=== PATIENT | female | born 1950 | race Caucasian/White ===

== ENCOUNTER 2018-03-27 01:12 | Outpatient (CLI) | payer MEDICARE, OTHER, SELFPAY ==
--- NOTE | 2018-03-27 11:02 | DI.MAMMO_ITS ---
SYMPTOMS/DIAGNOSIS: SCREENING, Z12.31 MAMMOGRAM: Mammograms were interpreted according to the usual protocol including computer analysis with CAD system, tomosynthesis and C view imaging. The breasts are heterogeneously dense. No dominant mass or clumped microcalcification identified in either breast. Current examination is compared with the previous examinations including February 2017 and there has been no gross interval change in appearance in comparison with the previous studies. CONCLUSION: No specific evidence of malignancy at this time. Routine screening examinations are suggested at yearly intervals due to the family history of breast carcinoma. Category 1, breast density category C. MQSA ASSESSMENT OF FINDINGS: Negative. Category 1. Patient will receive a letter notifying them of these results. Bi-RADS category C. The breasts are heterogeneously dense, which may obscure small masses.
== END 2018-03-27 01:32 ==
PROVIDERS: PCP Family Medicine; Visit Provider Nurse Practitioner Family
DX: Z12.31 Encounter for screening mammogram for malignant neoplasm of breast (principal); Z80.3 Family history of malignant neoplasm of breast
CPT/HCPCS: 77063; 77067

== ENCOUNTER 2019-04-17 01:22 | Outpatient (CLI) | payer OTHER, SELFPAY ==
--- NOTE | 2019-04-17 11:50 | DI.MAMMO_ITS ---
EXAM: MG MAMMO SCREENING CLINICAL HISTORY: screening TECHNIQUE: Mammograms were interpreted according to the usual protocol including computer analysis w [employer] CAD system, tomosynthesis and C-view imaging. COMPARISON: [id number] FINDINGS: The breasts are composed of scattered areas of fibroglandular density, breast density category B. Th ere are no significant masses or signficant microcalcifications. There has been no significant interv al change when compared with prior images. IMPRESSION: Category 1, negative mammogram. Yearly screening mammography is recommended. BI-RADS Cat 1 - Negative Breast Density - Category B - Scattered areas of fibroglandular density
== END 2019-04-17 01:42 ==
PROVIDERS: PCP Nurse Practitioner Family; Visit Provider Nurse Practitioner Family
DX: Z12.31 Encounter for screening mammogram for malignant neoplasm of breast (principal)
CPT/HCPCS: 77063; 77067

== ENCOUNTER 2020-07-04 03:36 | Outpatient (CLI) | payer MEDICARE, OTHER, SELFPAY ==
--- NOTE | 2020-07-04 | DI.MAMMO_ITS ---
EXAM: MG MAMMO SCREENING CLINICAL HISTORY: SCREENING, Z12.31 TECHNIQUE: Bilateral full field digital CC and MLO mammographic images were obtained with 3D tomosyn thesis and utilizing computer aided detection (CAD). COMPARISON: Available for comparison. FINDINGS: Masses/Architectural Distortion: None seen. Microcalcifications: No suspicious pleomorphic-type are seen. Skin Thickening/Nipple Retraction: None. IMPRESSION: 1. No significant interval change with no specific features of malignancy noted. 2. Unless there is more urgent need, screening mammography is recommended, as per [employer] guidelines. BI-RADS Category 1 - Negative Breast Density - Category B - Scattered areas of fibroglandular density Breast density category C or D implies that the patient has dense breast tissue. Dense breast tissue is very common and is not abnormal but dense breast tissue can make it harder to find cancer on a ma mmogram. Also, dense breast tissue may increase their breast cancer risk. This information about the result of the mammogram report was provided to the patient to raise their awareness. Use this report when you speak with the patient about their risks for breast cancer, which includes their family hist ory. At that time, you may recommend for more screening tests (Ultrasound or MRI) as they might be us eful based on their risk. A negative radiographic report should not delay biopsy if a dominant or clinically suspicious mass is present. Up to ten percent of cancers are not identified on mammography. A negative report may reinforce clinical impression. Adenosis and dense breasts may obscure an underlying neoplasm. False positive reports average 6 to 10%. Patient will receive a letter notifying them of these results.
== END 2020-07-04 03:56 ==
PROVIDERS: PCP Internal Medicine; Visit Provider Internal Medicine
DX: Z12.31 Encounter for screening mammogram for malignant neoplasm of breast (principal)
CPT/HCPCS: 77063; 77067

== ENCOUNTER 2021-10-21 00:38 | Outpatient (CLI) | payer MEDICARE, SELFPAY ==
--- NOTE | 2021-10-21 | DI.MAMMO_ITS ---
Exam(s) MAMMO SCREENING EXAM: MAMMO SCREENING CLINICAL HISTORY: SCREENING, Z12.31 TECHNIQUE: Mammograms were interpreted according to the usual protocol including computer analysis w [employer] CAD system, tomosynthesis and C-view imaging. COMPARISON: 2011 through 2020 FINDINGS: The breasts are composed of scattered fibroglandular densities, Breast Density category B. No suspicious masses or suspicious microcalcifications are seen. No skin thickening or abnormal axillary lymph nodes are seen. There has been no significant change from prior exams. IMPRESSION: BI-RADS Category 1, Negative mammogram Yearly screening mammography is recommended. Breast Density - Category B, scattered fibroglandular densities. A negative radiographic report should not delay biopsy if a dominant or clinically suspicious mass is present. Up to ten percent of cancers are not identified on mammography. A negative report may reinforce clinical impression. Adenosis and dense breasts may obscure an underlying neoplasm. False positive reports average 6 to 10%. Patient will receive a letter notifying them of these results.
--- OUTSIDE RECORDS SUMMARY | 2021-10-21 00:39 | XMS_ITS ---
:1950 Author Care Team Providers Name Role Phone DOMINGEUZ VALLES Primary Care Provider [phone] ANNETTE MOLINA MD General Surgeon [phone] JENNIFER ORTIZ MD General Surgeon [phone] Allergies Code Code System Name Reaction Severity Status Onset Cephalosporins Rash Mild Active ? Penicillins Rash Moderate to Active ? Severe 9773 RxNorm Silver Nitrate ? ? Active ? Medications Name Status Start Date Stop Date ? ? Adacel (Tdap Adolesn/Adult)(PF)2 Completed ? 06/25/2021 Lf-(2.5-5-3-5)-5 Lf/0.5 mL IM syringe albuterol sulfate HFA 90 Completed ? 020 mcg/actuation aerosol inhaler amlodipine 10 mg tablet Active ? Not avai lable Take 1 tablet every day by oral route. amlodipine 5 mg tablet Completed ? 8 azithromycin 250 mg tablet Completed ? 05/28 Calcium 600 + D(3) 600 mg-10 mcg (400 unit) tablet Active ? Not available Take 1 tablet every day by oral route. cyclobenzaprine 5 mg tablet Active ? Not available Take 1 tablet 3 times a day by oral route for 7 days. dexamethasone 1 mg tablet Completed ? 2017 doxycycline hyclate 100 mg tablet Completed ? 04/13/2018 Estrace 0.01% (0.1 mg/gram) Active ? Not available vaginal cream Euthyrox 112 mcg tablet Active ? Not avai lable TAKE 1 TABLET BY MOUTH ONCE DAILY Euthyrox 125 mcg tablet Completed ? 02/10/20 21 Take 1 tablet by mouth once daily famciclovir 500 mg tablet Active ? Not av ailable TAKE 1 TABLET BY MOUTH TWICE DAILY FOR 1 DAY Fluzone High-Dose (PF) 180 Completed ? 05/09/2019 mcg/0.5 mL intramuscular syringe hydroxychloroquine 200 mg tablet Completed ? 02/04/2021 levofloxacin 500 mg tablet Completed ? 03/02 levothyroxine 100 mcg tablet Completed ? Take one tablet every other day alternating with 112 mcg dose Lunesta 2 mg tablet Completed 06/30/2010 07/01/2010 1 (one) Tablet: at bedtime lutein 20 mg capsule Active ? Not availab le Take 1 capsule every day by oral route. meloxicam 15 mg tablet Completed 02/22/2012 3 1 Tablet: DAILY metronidazole 0.75 % lotion Active ? Not available nitrofurantoin macrocrystal 100 mg capsule Completed 09/1409/15/2011 one Capsule: As directed omeprazole 20 mg capsule,delayed release Active ? Not available Take 1 capsule every day by oral route for 30 days. Premarin 0.3 mg tablet Completed 12/09/2016 7 1 (one) Tablet: once a day ranitidine 150 mg capsule Completed 09/21/20102011 1 Capsule: bid - twice daily Shingrix (PF) 50 mcg/0.5 mL Completed ? 06/13 intramuscular suspension, kit simvastatin 20 mg tablet Active ? Not blaine ilable TAKE 1 TABLET BY MOUTH DAILY sulfacetamide sodium 10 % eye drops Completed 08/07/2010 08/14/2010 2 (two) Drop(s): four times daily sulfamethoxazole 800 Completed ? 03/26/2019 mg-trimethoprim 160 mg tablet Symbicort 160 mcg-4.5 mcg/actuation HFA aerosol inhaler Complete d ? 06/21/2019 Inhale 2 puffs twice a day by inhalation route for 30 days. Tessalon Perles 100 mg capsule Completed ? 0 06/21/2019 Take 1-2 capsules three times a day as needed trazodone 50 mg tablet Completed 07/27/2016 7 1 (one) Tablet: one to two at bedtime as needed TussiCaps 5 mg-4 mg capsule,extended release Completed 11/28/2009 1 (one) Capsule ER 12HR: at bedtime, as needed for cough valacyclovir 500 mg tablet Completed 03/30/201607/27 1 (one) Tablet: every 12 hours for up to 2 doses Vitamin B-12 1,000 mcg tablet Completed 10/24/2016 0 10/24/2016 1 (one) Tablet Tablet: daily Yuvafem 10 mcg vaginal tablet Active ? No t available 1 (one) Tablet: 2X/week Zovirax 5 % topical cream Completed 03/19/20132013 1 Cream: apply 5 times a day for 4 days prn Notes: 06/25/21 verbal review Problems Name Status Onset Date Source ? Sj?Gren's Syndrome Active 04/13/2018 ? Compression Fracture Active 03/06/2021 ? Melanocytic Nevus Active ? History Hypothyroidism Active ? History Biotin Deficiency Disease Active ? Histor y Hyperlipidemia Active ? History Insomnia Active ? History Migraine Active ? History Disorder of Conjunctiva Unknown ? History Hypertensive Disorder Active ? History Phlebitis and Thrombophlebitis Active ? H istory Pharyngitis Unknown ? History Sinusitis Unknown ? History Disorder of Upper Respiratory System Unknown ? History Xerostomia Unknown ? History Gastroesophageal Reflux Disease Active ? History Incisional Hernia Active ? History Constipation Active ? History Urinary Tract Infectious Disease Unknown ? History Blood in Urine Active ? History Atrophic Vaginitis Active ? History Rosacea Active ? History Senile Hyperkeratosis Active ? History Backache Unknown ? History Lack of Energy Unknown ? History Tingling of Skin Unknown ? History Heart Murmur Active ? History Dyspnea Unknown ? History Hyperglycemia Active ? History Immunoglobulin Level - Finding Active ? H istory C-reactive Protein Abnormal Active ? Hist ory Toxic Effect of Venom Active ? History Accidental Poisoning Unknown ? History Adult Health Examination Active ? History Procedure by Method Unknown ? History Perimenopausal Disorder Active ? History Disorder of Skin Unknown ? History Multiple System Malformation Syndrome Unknown ? History Procedures Date Name Performed by ? 05/18/2017 Colonoscopy Information not avai lable ? Hysterectomy Information not avai lable Notes: per patient ? Tubal Ligation Information not avai lable Notes: per patient ? Appendectomy Information not avai lable Notes: per patient ? Section Information not avai lable Notes: per patient 05/28/2019 XR, Foot, 3 or More [facility] [address], [place] [address] (Work Place) 06/21/2019 DEXA, Axial Skeleton [facility] (Internal) [address] [address] (Work Place) 06/23/2020 MAMMO, Screening, Tomosynthesis, [facility] (Radiology) Bilateral [address] [place], [place] [id number] (Work Place) 02/04/2021 XR, Lumbosacral Spine, 2 or 3 View [facility] (Internal) [address], [place] [id number] (Work Place) 02/09/2021 MRI, Thoracic Spine, W/o Contrast [facility] (Internal) [address] [place] [address] (Work Place) 06/25/2021 MAMMO, Screening, Tomosynthesis, Xray Nv rh Bilateral Pob [address] [facility], [place] [address] (Work Place) Results Lab Results Date Name Specimen Result Interpretation Description Value Range Status Address ? 06/26/2021 Hepatitis S ? Hbc negative negative Final [facility] (A+B+C) Panel, Total Ab, [facility] L ab (Internal) : [address] ? ? S ? Hbs positive ? Final [facility] Antibody, [facility] L ab (Internal) : [address] ? ? S ? Hbs 38.1 mIU/mL ? Final [facility] Antibody, [facility] michael, S (Internal) : [address] ? ? S ? Hbs negative negative Final [facility] Antigen, [facility] L ab (Internal) : [address] ? ? S ? HCV Ab, negative negative Final Nort h S [facility] L ab (Internal) : [address] 06/26/2021 Aldosterone, S ? Aldoster 18 NG/dL <=21 Fi nal [facility] Blood one, S NG/dL [facility] L ab (Internal) : [address] 06/26/2021 Renin ? Renin 1.0 NG/mL/h ? Final N orth Activity, Activity, Coun try Plasma (Pra) P Hosp ital Lab (Internal) : [address] 06/24/2021 CBC W/ Auto BLD ? Wbc 5.7 10*3/uL 5.0-10.0 F inal North Diff 10*3/uL [facility] L ab (Internal) : [address] ? ? BLD ? Rbc 4.38 10*6/uL 4.10-5.30 Final N orth 10*6/uL [facility] L ab (Internal) : [address] ? ? BLD ? Hgb 14.3 g/dL 12.0-16.0 Final Nort h g/dL [facility] L ab (Internal) : [address] ? ? BLD ? Hct 42.3 % 37.0-47.0 Final [facility] L ab (Internal) : [address] ? ? BLD High Mcv 96.6 fL 80.0-96.0 Final [facility] L ab (Internal) : [address] ? ? BLD High Mch 32.6 pg 26.0-32.0 Final [facility] L ab (Internal) : [address] ? ? BLD ? Mchc 33.8 g/dL 31.0-35.0 Final Nort h g/dL [facility] L ab (Internal) : [address] ? ? BLD ? Rdw 12.6 % 11.5-14.5 Final [facility] L ab (Internal) : [address] ? ? BLD ? Plt 346 10*3/uL 130-450 Final Nort h 10*3/uL [facility] L ab (Internal) : [address] ? ? BLD ? Anc 3.40 10*3/uL ? Final Nort h [facility] L ab (Internal) : [address] ? ? BLD ? Nlr 1.94 0.00-3.20 Final [facility] L ab (Internal) : [address] ? ? BLD ? Neutro 59.8 % 40.0-75.0 Final [facility] L ab (Internal) : [address] ? ? BLD ? Lymph 30.8 % 20.0-50.0 Final [facility] L ab (Internal) : [address] ? ? BLD ? [place] 6.9 % 2.0-10.0 [facility] [address] ? ? BLD ? Eos 1.4 % 1.0-6.0 % Final [facility] L ab (Internal) : [address] ? ? BLD ? Baso 0.7 % 0.0-1.0 % Final [facility] L ab (Internal) : [address] ? ? BLD ? Ig 0.4 % 0.0-0.9 % Final [facility] L ab (Internal) : [address] 06/24/2021 TSH, Serum or S ? Tsh 1.43 uIU/mL 0.36-3.7 4 Final North Plasma uIU/mL [facility] [address] 06/24/2021 CMP, Serum or S ? g/r 88 mg/dL 74-106 Yadira l [facility] Plasma mg/dL [facility] (Internal) : [address] ? ? S ? Bun 12 mg/dL 7-18 Final North mg/dL [facility] (Internal) : [address] ? ? S ? Crea 0.7 mg/dL 0.6-1.0 Final North mg/dL [facility] L ab (Internal) : [address] ? ? S ? Ca 9.2 mg/dL 8.5-10.1 Final North mg/dL [facility] L ab (Internal) : [address] ? ? S ? Na 141 mmol/L 136-145 Final North mmol/L [facility] L ab (Internal) : [address] ? ? S ? K 3.9 mmol/L 3.5-5.1 Final [facility] mmol/L [facility] (Internal) : [address] ? ? S ? Cl 103 mmol/l 98-107 Final North mmol/l [facility] L ab (Internal) : [address] ? ? S ? Tco2 29.7 mmol/L 21.0-32.0 Final No rth mmol/L [facility] L ab (Internal) : [address] ? ? S ? Tp 7.3 g/dL 6.4-8.2 Final North g/dL [facility] (Internal[facility] : [address] ? ? S ? Alb 4.0 g/dL 3.4-5.0 Final North g/dL [facility] L ab (Internal) : [address] ? ? S ? Tbil 0.60 mg/dL 0.20-1.00 Final Nor th mg/dL [facility] L ab (Internal) : [address] ? ? S ? Alp 82 U/L 46-116 Final North U/L [facility] L ab (Internal) : [address] ? ? S High Alt 78 U/L 14-59 U/L Final [facility] (Sgpt) [facility] L ab (Internal) : [address] ? ? S ? Ast 34 U/L 15-37 U/L Final [facility] (Sgot) [facility] L ab (Internal) : [address] 06/24/2021 Lipid Panel, S High Chol 225 mg/dL 0-200 Yadira l North Serum mg/dL [facility] L ab (Internal) : [address] ? ? S ? Trig 115 mg/dL 0-150 Final North mg/dL [facility] L ab (Internal) : [address] ? ? S High Hdl 63 mg/dL 40-60 Final North mg/dL [facility] L ab (Internal) : [address] ? ? S High Ldl 139 mg/dL 0-130 Final North mg/dL [facility] L ab (Internal) : [address] 06/24/2021 Bilirubin, S ? Dbil 0.14 mg/dL 0.00-0.20 Fi nal North Direct, Serum mg/dL Cou ntry or Plasma Hospita l Lab (Internal) : [address] [facility] 06/24[facility]2021 Gamma-glutamyl S High Ggt 80 U/L 5-55 U/L Fin al North Transferase Count ry (Ggt), Serum Hosp ital Lab (Internal) : [address] 02/03/2021 TSH, Serum or S ? Tsh 1.30 0.47-4.68 Fin al North Plasma u[IU]/mL u[IU]/mL [facility] L ab (Internal) : [address] 12/10/2020 TSH, Serum or S Low Tsh <0.05 0.47-4.68 Fin al North Plasma u[IU]/mL u[IU]/mL [facility] L ab (Internal) : [address] 06/20/2020 Lipid Panel, S High Chol 246 mg/dL 50-200 Yadira [facility] Serum mg/dL [facility] L ab (Internal) : [address] ? ? S ? Trig 98 mg/dL 10-150 Final North mg/dL [facility] L ab (Internal) : [address] ? ? S High Hdl 90 mg/dL 40-60 Final North mg/dL [facility] L ab (Internal) : [address] ? ? S High Ldl 136 mg/dL 0-130 Final North mg/dL [facility] L ab (Internal) : [address] 06/20/2020 TSH, Serum or S High Tsh 6.62 0.47-4.68 Fin mo North Plasma u[IU]/mL u[IU]/mL [facility] L ab (Internal) : [address] 04/04/2020 Pathology TISS ? Report (see below) ? [facility] [address] 05/21/2019 Lipid Panel, S High Chol 235 mg/dL 50-200 Yadira [facility] Serum mg/dL [facility] L ab (Internal) : [address] ? ? S High Trig 207 mg/dL 10-150 Final North mg/dL [facility] ab (Internal) : [address] ? ? S High Hdl 83 mg/dL 40-60 Final North mg/dL [facility] L ab (Internal) : [address] ? ? S - Ldl 111 mg/dL 0-130 Final North mg/dL [facility] L ab (Internal) : [address] 05/21/2019 TSH, Serum or S - Tsh 4.60 0.47-4.68 Fin [facility] Plasma u[IU]/mL u[IU]/mL [facility] L ab (Internal) : [address] 02/23/2019 Culture, MISC - Final microbiology ? Final North Superficial results Coun try [facility] (Internal) : [address] 01/06/2019 Lipid Panel, S - Chol 187 mg/dL 50-200 Yadira l [facility] Serum mg/dL [facility] L ab (Internal) : [address] ? ? S - Trig 104 mg/dL 10-150 Final [facility] mg/dL [facility] L ab (Internal) : [address] ? ? S High Hdl 97 mg/dL 40-60 Final North mg/dL [facility] ab (Internal) : [address] ? ? S - Ldl 69 mg/dL 0-130 Final [facility] mg/dL [facility] L ab (Internal) : [address] 01/06/2019 TSH, Serum or S High Tsh 7.63 0.47-4.68 Fin [facility] Plasma u[IU]/mL u[IU]/mL [facility] L ab (Internal) : [address] 02/17/2018 Metanephrines, - Normetan 0.47 nmol/L <0.9 0 Final [facility] Fractionated, ephrine, nmol/L C ountry Free, Plasma Free Hosp ital Lab (Internal) : [address] ? ? - Metaneph <0.20 nmol/L <0.50 Final N orth rine, nmol/L [facility] L ab (Internal) : [address] 11/10/2017 BMP, Serum or S High g/r 127 mg/dL 74-106 Fin [facility] Plasma mg/dL [facility] L ab (Internal) : [address] ? ? S High Bun 18 mg/dL 7-17 Final North mg/dL [facility] L ab (Internal) : [address] ? ? S - Crea 0.70 mg/dL 0.52-1.04 Final Nor th mg/dL [facility] L ab (Internal) : [address] ? ? S - Ca 9.7 mg/dL 8.4-10.2 Final [facility] mg/dL [facility] (Internal[facility] : [address] [facility] ? ? S - Na 139 mmol/L 137-145 Final North mmol/L [facility] (Internal) : [address] [facility] ? ? S - K 4.2 mmol/L 3.5-5.1 Final North mmol/L [facility] L ab (Internal) : [address] [facility] t ? ? S - Cl 104 mmol/L 98-107 Final North mmol/L [facility] (Internal) : [address] [facility] ? ? S - Tco2 26.0 mmol/L 22.0-30.0 Final No rth mmol/L [facility] (Internal) : [address] [facility] 11/10/2017 Cortisol, S - Cortisol 1 ug/dL ? Final [facility] Serum or [facility] L ab (Internal) : [address] [facility] 11/10/2017 Renin - Renin 3.4 NG/mL/h ? Final N orth Activity, Activity, Coun try Plasma (Pra) P Hosp ital Lab (Internal) : [address] [facility] 11/10/2017 Aldosterone, S High Aldoster 22 NG/dL <=21 Fi nal [facility] Blood one, S NG/dL [facility] L ab (Internal) : [address] [facility] 09/11/2017 Influenza NASAL ? Final microbiology ? Yadira l [facility] (A+B) Ag, results Countr y Qual, Rapid, Hosp ital Lab Nose (Internal) : [address] [facility] 08/11/2017 Uric Acid, S ? Urca 3.1 mg/dL 2.5-6.2 Final [facility] Serum or mg/dL [facility] (Internal) : [address] [facility] 08/11/2017 CBC W/ Auto BLD ? Wbc 5.1 10*3/uL 5.0-10.0 F inal North Diff 10*3/uL [facility] [address] [facility] ? ? BLD ? Rbc 4.13 10*6/uL 4.10-5.30 Final N orth 10*6/uL [facility] L ab (Internal) : [address] ? ? BLD ? Hgb 13.6 g/dL 12.0-16.0 Final Nort h g/dL [facility] L ab (Internal) : [address] ? ? BLD ? Hct 39.7 % 37.0-47.0 Final [facility] L ab (Internal) : [address] ? ? BLD High Mcv 96.1 fL 80.0-96.0 Final [facility] L ab (Internal) : [address] ? ? BLD High Mch 32.9 pg 26.0-32.0 Final [facility] pg [facility] L ab (Internal) : [address] ? ? BLD ? Mchc 34.3 g/dL 31.0-35.0 Final Nort h g/dL [facility] L ab (Internal) : [address] ? ? BLD ? Rdw 12.6 % 11.5-14.5 Final [facility] L ab (Internal) : [address] ? ? BLD ? Plt 296 10*3/uL 130-450 Final Nort h 10*3/uL [facility] L ab (Internal) : [address] ? ? BLD ? Anc 3.47 10*3/uL ? Final Nort h [facility] L ab (Internal) : [address] ? ? BLD ? Neutro 67.4 % 40.0-75.0 Final [facility] L ab (Internal) : [address] ? ? BLD ? Lymph 21.4 % 20.0-50.0 Final [facility] L ab (Internal) : [address] ? ? BLD ? [place] 8.4 % 2.0-10.0 Final [facility] L ab (Internal) : [address] ? ? BLD ? Eos 1.8 % 1.0-6.0 % Final [facility] L ab (Internal) : [address] ? ? BLD ? Baso 0.8 % 0.0-1.0 % Final [facility] L ab (Internal) : [address] ? ? BLD ? Ig 0.2 % 0.0-0.9 % Final [facility] L ab (Internal) : [address] 08/11/2017 CMP, Serum or S ? g/r 105 mg/dL 74-106 Fin al North Plasma mg/dL [facility] (Internal) : [address] ? ? S ? Bun 10 mg/dL 7-17 Final North mg/dL [facility] ab (Internal) : [address] ? ? S ? Crea 0.80 mg/dL 0.52-1.04 Final Nor th mg/dL [facility] ab (Internal) : [address] ? ? S ? Ca 10.1 mg/dL 8.4-10.2 Final Nort h mg/dL [facility] L ab (Internal) : [address] ? ? S ? Na 137 mmol/L 137-145 Final North mmol/L [facility] ab (Internal) : [address] ? ? S ? K 3.5 mmol/L 3.5-5.1 Final North mmol/L [facility] ab (Internal) : [address] ? ? S ? Cl 98 mmol/L 98-107 Final North mmol/L [facility] ab (Internal) : [address] ? ? S ? Tco2 27.0 mmol/L 22.0-30.0 Final No rth mmol/L [facility] L ab (Internal) : [address] ? ? S ? Tp 7.9 g/dL 6.3-8.2 Final North g/dL [facility] L ab (Internal) : [address] ? ? S ? Alb 4.5 g/dL 3.5-5.0 Final North g/dL [facility] ab (Internal) : [address] ? ? S ? Tbil 0.3 mg/dL 0.2-1.3 Final North mg/dL [facility] L ab (Internal) : [address] ? ? S ? Alp 105 U/L 38-126 Final [facility] U/L [facility] ab (Internal) : [address] ? ? S ? Alt 37 U/L 9-52 U/L Final [facility] (Sgpt) [facility] ab (Internal) : [address] ? ? S High Ast 46 U/L 14-36 U/L Final [facility] (Sgot) [facility] ab (Internal) : [address] 08/11/2017 Urinalysis, UR ABNOR UA-color light pink pale F inal North Complete MAL yellow [facility] ab (Internal) : [address] ? ? UR ABNOR UA-appea hazy clear Final [facility] r [facility] ab (Internal) : [address] ? ? UR ? UA-spec <=1.005 1.003-1.0 Final Nort h Grav 35 [facility] ab (Internal) : [address] ? ? UR ? UA-pH 5.5 [pH] 4.6-8.0 Final [facility] [pH] [facility] ab (Internal) : [address] ? ? UR ? UA-leuk negative negative Final Nort h [facility] ab (Internal) : [address] ? ? UR ? UA-nitri negative negative Final Nor th te [facility] ab (Internal) : [address] ? ? UR ? UA-prot negative negative Final [facility] (Internal) : [address] ? ? UR ? UA-gluc negative negative Final Nort h [facility] ab (Internal) : [address] ? ? UR ? UA-keton negative negative Final Nor th e [facility] ab (Internal) : [address] ? ? UR ? UA-urobi normal normal Final [facility] ab (Internal) : [address] ? ? UR ? UA-bili negative negative Final [facility] (Internal) : [address] ? ? UR ABNOR UA-blood large negative Final [facility] ab (Internal) : [address] ? ? UR ? UA-WBC 0-3 [hpf] 0-3 [hpf] Final [facility] ab (Internal) : [address] ? ? UR ? UA-RBC 0-2 [hpf] 0-2 [hpf] Final [facility] ab (Internal) : [address] ? ? UR ABNOR UA-bacte moderate none seen Final No rth MAL isabelle [hpf] [hpf] [facility] ab (Internal) : [address] [place] ? ? UR ABNOR UA-epith moderate none seen Final No rth MAL elial [hpf] [hpf] [facility] (Internal) : [address] ? ? UR ? UA-mucus none seen none seen Final N orth [hpf] [hpf] [facility] (Internal) : [address] 08/08/2017 Venipuncture BLD ? Venpn* ? ? Final [facility] ab (Internal) : [address] 08/08/2017 TSH, Serum or S ? Tsh 0.90 0.47-4.[address] [facility] Plasma u[IU]/mL u[IU]/mL [facility] (Internal[facility] : [address] 08/08/2017 Culture, Urine UR ? Final microbiology ? Final [facility] (Internal) : [address] 08/08/2017 Urinalysis, UR ABNOR UA-WBC 5-10 [hpf] 0-3 [hpf] Final [facility] Microscopic MAL Count [facility] ab (Internal) : [address] ? ? UR ABNOR UA-RBC >100 [hpf] 0-2 [hpf] Final No rth MAL [facility] ab (Internal) : [address] ? ? UR ABNOR UA-bacte moderate none seen Final No rth MAL isabelle [hpf] [hpf] [facility] (Internal) : [address] ? ? UR ? UA-epith rare [hpf] none seen Final [facility] elial [hpf] [facility] (Internal) : [address] ? ? UR ? UA-mucus none seen none seen Final N orth [hpf] [hpf] [facility] ([facility] : [address] 08/08/2017 Urinalysis, UR ABNOR UA-color red pale Final [facility] Dipstick, MAL yellow [facility] Lab (Internal) : [address] ? ? UR ? UA-appea clear clear Final North [facility] (Internal) : [address] ? ? UR ABNOR UA-gluc unable to negative Final Nor th MAL perform [facility] (Internal) : [address] ? ? UR ABNOR UA-bili unable to negative Final Nor th MAL perform [facility] (Internal) : [address] ? ? UR ABNOR UA-keton unable to negative Final No rth MAL e perform [facility] (Internal) : [address] [address] ? ? UR ? UA-spec unable to 1.003-1.0 Final No rth Grav perform [address] [place] [address] Hospital L ab (Internal) : [address] ? ? UR ABNOR UA-blood unable to negative Final No rth MAL perform [facility] ([facility] : [address] ? ? UR ? UA-pH unable to 4.6-8.0 Final [facility] perform [pH] [pH] Coun [facility] L ab (Internal) : [address] ? ? UR ABNOR UA-prot unable to negative Final Nor th MAL perform [facility] L [facility] (Internal) : [address] ? ? UR ABNOR UA-urobi unable to normal Final Nort h MAL l perform [facility] L ab (Internal) : [address] ? ? UR ABNOR UA-nitri unable to negative Final No rth MAL te perform [facility] (Internal) : [address] ? ? UR ABNOR UA-leuk unable to negative Final Nor th MAL Est perform [facility] (Internal) : [address] 06/07/2017 Venipuncture BLD ? Venpn* ? ? Final [facility] L ab (Internal) : [address] 06/07/2017 TSH, Serum or S Low Tsh <0.05 0.47-4.68 Fin al [facility] Plasma u[IU]/mL u[IU]/mL [facility] Hospital L ab (Internal) : [address] 05/20/2017 Venipuncture BLD ? Venpn* ? ? Final [facility] L ab (Internal) : [address] [facility] 05/20/2017 Protein S ? Total 7.1 g/dL 6.3-8.2 Final No rth Electrophoresi Protein g/dL C ountry s Panel, Serum Ho spital Lab or Plasma (Retail Banking Manager al): [address] t ? ? S ? Albumin 60.0 % 55.8-66.1 Final [facility] L ab (Internal) : [address] t ? ? S ? Alpha 1 4.1 % 2.9-4.9 % Final [facility] L ab (Internal) : [address] t ? ? S ? Alpha 2 10.8 % 7.1-11.8 Final [facility] L ab (Internal) : [address] t ? ? S ? Beta 12.5 % 8.4-13.1 Final [facility] L ab (Internal) : [address] t ? ? S ? Gamma 12.6 % 11.1-18.8 Final [facility] L ab (Internal) : [address] t ? ? S ? Comments see comments ? Final [facility] L ab (Internal) : [address] 05/20/2017 C4 S ? C4 19 mg/dL 16-38 Final Nort h (Complement), Complemen mg/dL Country Serum or Hospital Lab Plasma (Internal) : [address] [facility] 05/20/2017 C3 S ? C3 135 mg/dL 79-152 Final Nor th (Complement), Complemen mg/dL [facility] Serum or Hospital Lab Plasma (Internal) : [address] 02/21/2017 Venipuncture BLD ? Venpn* ? ? Final [facility] L ab (Internal) : [address] t 02/21/2017 Urinalysis, UR ? UA-color yellow pale Final North Complete yellow [facility] ab (Internal) : [address], [address] ? ? UR ABNOR UA-appea hazy clear Final [facility] ab (Internal) : [address], [address] ? ? UR ? UA-spec 1.025 1.003-1.0 Final North Grav 35 [facility] ab (Internal) : [address], [address] ? ? UR ? UA-pH 6.0 [pH] 4.6-8.0 Final [facility] [pH] [facility] ab (Internal) : [address] ? ? UR ? UA-leuk negative negative Final [facility] ab (Internal) : [address] ? ? UR ? UA-nitri negative negative Final [facility] ab (Internal) : [address] ? ? UR ? UA-prot negative negative Final [facility] ab (Internal) : [address] ? ? UR ? UA-gluc negative negative Final [facility] ab (Internal) : [address] t ? ? UR ABNOR UA-keton trace negative Final [facility] ab (Internal) : [address] ? ? UR ? UA-urobi normal normal Final [facility] ab (Internal) : [address] t ? ? UR ? UA-bili negative negative Final [facility] ab (Internal) : [address] [place] ? ? UR ABNOR UA-blood moderate negative Final [facility] ab (Internal) : [address] ? ? UR ? UA-WBC 0-3 [hpf] 0-3 [hpf] Final [facility] ab (Internal) : [address] ? ? UR ? UA-RBC 0-2 [hpf] 0-2 [hpf] Final [facility] ab (Internal) : [address] t ? ? UR ABNOR UA-bacte moderate none seen Final No rth MAL isabelle [hpf] [hpf] [facility] L [facility] (Internal) : [address] ? ? UR ABNOR UA-epith moderate none seen Final No rth MAL elial [hpf] [hpf] [facility] L ab (Internal) : [address] ? ? UR ABNOR UA-mucus many [hpf] none seen Final North MAL [hpf] [facility] L ab (Internal) : [address] 02/21/2017 SS-B S ? ss-B/la <0.2 U <1.0 Final Nort h Extractable Ab, IgG, (negative [facility] Nuclear IgG S ) [facility], (Internal[facility] : Quantitative, [address] 02/21/2017 SS-A S High ss-A/RO 2.9 U <1.0 Final Nort h Extractable Ab, IgG, (negative [facility] Nuclear IgG S ) U [facility] Lab Ab, (Internal) : Quantitative, [address] 02/21/2017 RUBEN S ABNOR RUBEN positive negat Final Nort h (Antinuclear MAL Interpret C ountry Antibodies) ation [facility] Lab Screen, Serum (I nternal): [address] t ? ? S ? Antibody 1:80 ? Final North Titer speckled [facility] Lab (Internal) : [address] 02/21/2017 Rf (Rheumatoid BLD ? Rf negative < negative Final North Factor), Serum 10 [IU]/mL < 10 Country [IU]/mL Hospital Lab (Internal) : [address] 02/21/2017 CMP, Serum or S ? g/r 95 mg/dL 74-106 Yadira l North Plasma mg/dL [facility] L ab (Internal) : [address] ? ? S High Bun 25 mg/dL 7-17 Final North mg/dL [facility] L ab (Internal) : [address] ? ? S ? Crea 0.70 mg/dL 0.52-1.04 Final Nor th mg/dL [facility] L ab (Internal) : [address] ? ? S ? Ca 9.6 mg/dL 8.4-10.2 Final North mg/dL [facility] L [facility] (Internal) : [address] t ? ? S ? Na 139 mmol/L 137-145 Final [facility] mmol/L [facility] L [facility] (Internal) : [address] t ? ? S ? K 3.8 mmol/L 3.5-5.1 Final [facility] mmol/L [facility] L [facility] (Internal) : [address] t ? ? S ? Cl 102 mmol/L 98-107 Final North mmol/L [facility] L ab (Internal) : [address] t ? ? S ? Tco2 25.0 mmol/L 22.0-30.0 Final No rth mmol/L [facility] L ab (Internal) : [address] t ? ? S ? Tp 7.9 g/dL 6.3-8.2 Final [facility] g/dL [facility] L [facility] (Internal) : [address] t ? ? S ? Alb 4.8 g/dL 3.5-5.0 Final [facility] g/dL [facility] L [facility] (Internal) : [address] t ? ? S ? Tbil 0.7 mg/dL 0.2-1.3 Final [facility] mg/dL [facility] L [facility] (Internal) : [address] t ? ? S ? Alp 79 U/L 38-126 Final North U/L [facility] L ab (Internal) : [address] t ? ? S ? Alt 43 U/L 9-52 U/L Final [facility] (Sgpt) [facility] L ab (Internal) : [address] t ? ? S High Ast 38 U/L 14-36 U/L Final [facility] (Sgot) [facility] L ab (Internal) : [address] 02/21/2017 CRP, High S ? Rcrp 0.28 mg/dL 0.10-0.30 Fin [facility] Sensitivity, mg/dL Coun try Serum or Hospital Lab Plasma (Internal) : [address] 02/21/2017 ESR BLD ? Esr 4 mm/h 0-30 mm/h Final Nor th (Erythrocyte Coun try [facility] Lab Rate), Blood (Int ernal): [address] 02/21/2017 CBC W/ Auto BLD ? Wbc 6.9 10*3/uL 5.0-10.0 F inal North Diff 10*3/uL [facility] L ab (Internal) : [address] ? ? BLD ? Rbc 4.38 10*6/uL 4.10-5.30 Final N orth 10*6/uL [facility] L ab (Internal) : [address] ? ? BLD ? Hgb 14.3 g/dL 12.0-16.0 Final Nort h g/dL [facility] L ab (Internal) : [address] ? ? BLD ? Hct 42.4 % 37.0-47.0 Final [facility] Hospital L ab (Internal) : [address] ? ? BLD High Mcv 96.8 fL 80.0-96.0 Final [facility] Hospital L ab (Internal) : [address] t ? ? BLD High Mch 32.6 pg 26.0-32.0 Final [facility] Hospital L ab (Internal) : [address] t ? ? BLD ? Mchc 33.7 g/dL 31.0-35.0 Final Nort h g/dL [facility] L ab (Internal) : [address] ? ? BLD ? Rdw 13.4 % 11.5-14.5 Final [facility] Hospital L ab (Internal) : [address] t ? ? BLD ? Plt 249 10*3/uL 130-450 Final Nort h 10*3/uL [facility] L ab (Internal) : [address] t ? ? BLD ? Anc 5.01 10*3/uL ? Final Nort h [facility] L ab (Internal) : [address] t ? ? BLD ? Neutro 73.2 % 40.0-75.0 Final [facility] Hospital L ab (Internal) : [address] ? ? BLD ? Lymph 20.1 % 20.0-50.0 Final [facility] L ab (Internal) : [address] t ? ? BLD ? [place] 4.7 % 2.0-10.0 Final [facility] % [facility] L ab (Internal) : [address] t ? ? BLD Low Eos 0.7 % 1.0-6.0 % Final [facility] L ab (Internal) : [address] t ? ? BLD ? Baso 0.6 % 0.0-1.0 % Final [facility] L ab (Internal) : [address] t ? ? BLD ? Ig 0.7 % 0.0-0.9 % Final [facility] L ab (Internal) : [address] 12/08/2016 Venipuncture BLD ? Venpn* ? ? Final [facility] L ab (Internal) : [address] 12/08/2016 HbA1C BLD ? Ha1C 5.4 % 4.0-6.0 % Final [facility] (Hemoglobin Count ry a1C), Blood Hospi diann Lab (Internal) : [address] 12/08/2016 Folate, Serum S ? Folate >17.00 NG/mL 2.76-2 0.0 Final [facility] 0 NG/mL [facility] L ab (Internal) : [address] 12/08/2016 Vitamin B12, S ? Vit B12 852.0 pg/mL 239.0-9 31 Final [facility] Serum .0 pg/mL [facility] L ab (Internal) : [address] 12/08/2016 Lipid Panel, S ? Chol 167 mg/dL 50-200 Yadira l [facility] Serum mg/dL [facility] L ab (Internal) : [address] t ? ? S ? Trig 119 mg/dL 10-150 Final North mg/dL [facility] L ab (Internal) : [address] t ? ? S High Hdl 68 mg/dL 40-60 Final North mg/dL [facility] L ab (Internal) : [address] t ? ? S ? Ldl 75 mg/dL 0-130 Final North mg/dL [facility] L ab (Internal) : [address] 12/08/2016 BMP, Serum or S ? g/r 91 mg/dL 74-106 Yadira l North Plasma mg/dL [facility] L ab (Internal) : [address] t ? ? S ? Bun 14 mg/dL 7-17 Final North mg/dL [facility] L ab (Internal) : [address] t ? ? S ? Crea 0.70 mg/dL 0.52-1.04 Final Nor th mg/dL [facility] L [facility] (Internal) : [address] t ? ? S ? Ca 9.4 mg/dL 8.4-10.2 Final North mg/dL [facility] L ab (Internal) : [address] t ? ? S ? Na 141 mmol/L 137-145 Final North mmol/L [facility] L ab (Internal) : [address] t ? ? S ? K 4.0 mmol/L 3.5-5.1 Final North mmol/L [facility] L ab (Internal) : [address] t ? ? S ? Cl 103 mmol/L 98-107 Final [facility] mmol/L [facility] L ab (Internal) : [address] t ? ? S ? Tco2 28.0 mmol/L 22.0-30.0 Final No rth mmol/L [facility] L ab (Internal) : [address] t 12/08/2016 TSH, Serum or S ? Tsh 1.36 0.47-4.68 Fin al [facility] Plasma u[IU]/mL u[IU]/mL [facility] L [facility] (Internal) : [address] 10/16/2016 HbA1C BLD ? Ha1C 5.5 % 4.0-6.0 % Final Nor th (Hemoglobin Count ry a1C), Blood Hospi diann Lab (Internal) : [address] 10/16/2016 Troponin I, S ? Trop <0.06 NG/mL 0.00-0.06 Final [facility] Serum or NG/mL [facility] Hospital L ab (Internal) : [address] [facility]16[facility]2016 CMP, Serum or S High g/r 182 mg/dL 74-106 Fin al North Plasma mg/dL [facility] L ab (Internal) : [address] t ? ? S ? Bun 15 mg/dL 7-17 Final [facility] mg/dL [facility] L [facility] (Internal) : [address] t ? ? S ? Crea 0.80 mg/dL 0.52-1.04 Final Nor th mg/dL [facility] L [facility] (Internal) : [address] t ? ? S ? Ca 9.4 mg/dL 8.4-10.2 Final [facility] mg/dL [facility] (Internal) : [address] t ? ? S ? Na 140 mmol/L 137-145 Final North mmol/L [facility] L ab (Internal) : [address] ? ? S ? K 3.6 mmol/L 3.5-5.1 Final [facility] mmol/L [facility] (Internal) : [address] t ? ? S ? Cl 102 mmol/L 98-107 Final North mmol/L [facility] L ab (Internal) : [address] t ? ? S ? Tco2 22.0 mmol/L 22.0-30.0 Final No rth mmol/L [facility] L [facility] (Internal) : [address] ? ? S ? Tp 7.5 g/dL 6.3-8.2 Final [facility] g/dL [facility] (Internal) : [address] t ? ? S ? Alb 4.5 g/dL 3.5-5.0 Final [facility] g/dL [facility] (Internal) : [address] ? ? S ? Tbil 0.6 mg/dL 0.2-1.3 Final [facility] mg/dL [facility] (Internal) : [address] ? ? S ? Alp 73 U/L 38-126 Final North U/L [facility] L ab (Internal) : [address] ? ? S ? Alt 49 U/L 9-52 U/L Final [facility] (Sgpt) [facility] L ab (Internal) : [address] t ? ? S High Ast 42 U/L 14-36 U/L Final [facility] (Sgot) [facility] L ab (Internal) : [address] t 10/16/2016 CBC W/ Auto BLD ? Wbc 6.3 10*3/uL 5.0-10.0 F inal North Diff 10*3/uL [facility] L ab (Internal) : [address] ? ? BLD ? Rbc 4.28 10*6/uL 4.10-5.30 Final N orth 10*6/uL [facility] L ab (Internal) : [address] ? ? BLD ? Hgb 14.1 g/dL 12.0-16.0 Final Nort h g/dL [facility] L ab (Internal) : [address] ? ? BLD ? Hct 40.2 % 37.0-47.0 Final North % [facility] L ab (Internal) : [address] ? ? BLD ? Mcv 93.9 fL 80.0-96.0 Final [facility] fL [facility] L [facility] (Internal) : [address] ? ? BLD High Mch 32.9 pg 26.0-32.0 Final North pg [facility] L [facility] (Internal) : [address] ? ? BLD High Mchc 35.1 g/dL 31.0-35.0 Final Nort h g/dL [facility] L ab (Internal) : [address] t ? ? BLD ? Rdw 13.4 % 11.5-14.5 Final [facility] Hospital L ab (Internal) : [address] ? ? BLD ? Plt 279 10*3/uL 130-450 Final Nort h 10*3/uL [facility] L [facility] (Internal) : [address] ? ? BLD ? Anc 3.29 10*3/uL ? Final Nort [facility] L [facility] (Internal) : [address] ? ? BLD ? Neutro 52.4 % 40.0-75.0 Final North % [facility] L ab (Internal) : [address] ? ? BLD ? Lymph 39.8 % 20.0-50.0 Final [facility] Hospital L ab (Internal) : [address] ? ? BLD ? [place] 6.2 % 2.0-10.0 Final [facility] Hospital L ab (Internal) : [address] ? ? BLD Low Eos 0.8 % 1.0-6.0 % Final [facility] L ab (Internal) : [address] t ? ? BLD ? Baso 0.6 % 0.0-1.0 % Final [facility] L ab (Internal) : [address] ? ? BLD ? Ig 0.2 % 0.0-0.9 % Final [facility] L ab (Internal) : [address] 10/16/2016 TSH, Serum or S ? Tsh 3.49 0.47-4.68 Fin mo North Plasma u[IU]/mL u[IU]/mL [facility] Hospital L ab (Internal) : [address] t 09/28/2016 Venipuncture BLD ? Venpn* ? ? Final [facility] L ab (Internal) : [address] 09/28/2016 TSH, Serum or S ? Tsh 1.82 0.47-4.68 Fin al North Plasma u[IU]/mL u[IU]/mL [facility] Hospital L ab (Internal) : [address] 07/27/2016 TSH, Serum or S Low Tsh 0.14 0.47-4.68 Fin al North Plasma u[IU]/mL u[IU]/mL [facility] Hospital L ab (Internal) : [address] [place] prather Past Encounters 06/25/2021 Adult Health Examination; Screening for Malignant Neoplasm of Colon; Hypothyroidism; Hypertensive Disorder; Sj?Gren's Syndrome; Elevated Liver Enzymes Level; Hyperlipidemia; Perimenopausal Disorder ; Screening Mammography; Gastroesophagea l Reflux Disease without Esophagitis; Adrenal Adenoma; Inflamed Seborrheic Keratosis; Osteopenia HAI Callaway: [address] [place] [address], Ph. 02/04/2021 Acute Low Back Pain HAI Constantino: [address] [place] [address], Ph. 06/23/2020 Adult Health Examination; Screening Mamm ography; Hypertensive Disorder; Hypothyroidism; Perimenopausal Disorder; Inflamed Seborrheic Keratosis; Elevated Liver Enzymes Level; Hyperlipidemia; Sj?Gren's Syndrome HAI Callaway: [address] [place] [address], Ph. Social History Tobacco Smoking Status Former Smoker Notes: Quit ov er 20 years ago Vaccine List Vaccine Type COVID-19, mRNA, LNP-S, PF, 100 mcg/0.5 m L dose (Moderna) 10/01/2020 10/31/2020 05/04/2021 Hep B, adult influenza, high dose seasonal 03/09/2018?0.5 mL influenza, high-dose, quadrivalent 04/02/2020?0.7 mL 03/23/2021 influenza, injectable, quadrivalent 03/20/2019 influenza, seasonal, injectable 03/10/2012 03/26/2015 influenza, seasonal, injectable, preserv ative free 03/24/2010?0.5 mL 03/06/2013?0.5 mL 03/12/2014?0.5 mL 04/06/2016 MMR pneumococcal conjugate PCV 13 04/18/2015?0.5 mL pneumococcal polysaccharide PPV23 10/20/2015?0.5 mL Tdap 09/18/2007 06/26/2019 varicella zoster live 05/19/2010 zoster recombinant 12/11/2019 zoster, unspecified formulation 07/03/2019 Plan of Care Reminders Provider Appointments None ? ? recorded. Lab None ? ? recorded. Referral None ? ? recorded. Procedures None ? ? recorded. Surgeries None ? ? recorded. Imaging None ? ? recorded. Vitals 06/25/2021 01:40PM AWV 40 Height Weight BMI Blood Pressure 161.29 cm 68.9 kg 26.5 kg/m2 142/92 mm[Hg] 02/04/2021 02:40PM Follow Up 20 Height Weight BMI Blood Pressure 161.29 cm 68.81 kg 26.5 kg/m2 142/98 mm[Hg] 06/23/2020 01:40PM AWV 40 Height Weight BMI Blood Pressure 161.29 cm 69.2 kg 26.6 kg/m2 148/88 mm[Hg] 04/14/2020 01:00PM Office 15 Height 162.56 cm 04/04/2020 12:30PM Office 15 Height 162.56 cm 04/02/2020 10:20AM Nurse 20 Height 162.56 cm 06/21/2019 09:40AM AWV 40 Height Weight BMI Blood Pressure 162.56 cm 65.77 kg 24.9 kg/m2 118/76 mm[Hg] 05/28/2019 03:20PM Same Day 20 Height Weight BMI Blood Pressure 162.56 cm 63.5 kg 24 kg/m2 118/72 mm[Hg] 05/09/2019 03:20PM Same Day 20 Height Weight BMI Blood Pressure 162.56 cm 63.5 kg 24 kg/m2 122/74 mm[Hg] 03/26/2019 01:20PM Follow Up 20 Height Weight BMI Blood Pressure 162.56 cm 63.5 kg 24 kg/m2 122/68 mm[Hg] 03/02/2019 08:40AM Follow Up 20 Height Weight BMI Blood Pressure 162.56 cm 63.5 kg 24 kg/m2 110/70 mm[Hg] 02/28/2019 11:20AM Same Day 20 Height Weight BMI Blood Pressure 162.56 cm 63.5 kg 24 kg/m2 100/70 mm[Hg] 02/26/2019 09:20AM Acute 20 Height Weight BMI Blood Pressure 162.56 cm 63.5 kg 24 kg/m2 106/70 mm[Hg] 02/23/2019 02:00PM Acute 20 Height Weight BMI Blood Pressure 162.56 cm 63.5 kg 24 kg/m2 110/74 mm[Hg] 02/21/2019 01:40PM CPE 20 Height Blood Pressure 162.56 cm 110/70 mm[Hg] 02/19/2019 04:20PM Same Day 20 Height Weight BMI Blood Pressure 162.56 cm 63.5 kg 24 kg/m2 126/80 mm[Hg] 01/08/2019 02:00PM Office [place] 40 Height Weight BMI Blood Pressure 162.56 cm 65.77 kg 24.9 kg/m2 120/70 mm[Hg] 01/05/2019 09:30AM Office 15 Height 162.56 cm 04/13/2018 09:40AM Follow Up 20 Height Weight Blood Pressure 162.56 cm 116/78 mm[Hg] 08/11/2017 Weight Blood Pressure 61.23 kg 118/82 mm[Hg] 08/08/2017 Weight Blood Pressure 61.23 kg 130/80 mm[Hg] 06/09/2017 Weight Blood Pressure 61.23 kg 140/90 mm[Hg] 06/01/2017 Weight Blood Pressure 61.23 kg 130/84 mm[Hg] 02/21/2017 Height Weight Blood Pressure 162.56 cm 61.69 kg 132/74 mm[Hg] 12/09/2016 Height Weight Blood Pressure 162.56 cm 63.5 kg 130/78 mm[Hg] 10/19/2016 Height Weight Blood Pressure 162.56 cm 64.41 kg 140/80 mm[Hg] 09/28/2016 Height Weight Blood Pressure 166.37 cm 61.23 kg 140/90 mm[Hg] 07/27/2016 Height Weight Blood Pressure 166.37 cm 61.23 kg 136/92 mm[Hg] 12/11/2015 Height Weight Blood Pressure 166.37 cm 61.23 kg 130/90 mm[Hg] 10/20/2015 Height Weight Blood Pressure 166.37 cm 61.23 kg (1) 148/96 mm[Hg] (2) 128/88 mm[Hg] 09/17/2014 Height Weight Blood Pressure 166.37 cm 60.33 kg (1) 132/94 mm[Hg] (2) 144/88 mm[Hg] 07/11/2013 Height Weight Blood Pressure 166.37 cm 60.74 kg 128/96 mm[Hg] 04/03/2013 Height Weight Blood Pressure 166.37 cm 61.23 kg 134/88 mm[Hg] 07/12/2012 Weight Blood Pressure 61.23 kg 120/78 mm[Hg] 02/22/2012 Height Blood Pressure 166.37 cm 130/72 mm[Hg] 01/18/2011 Height Weight Blood Pressure 166.37 cm 61.23 kg 130/86 mm[Hg] 11/16/2010 Height Weight Blood Pressure 166.37 cm 61.23 kg 98/62 mm[Hg] 09/11/2010 Height Weight Blood Pressure 166.37 cm 61.23 kg 120/84 mm[Hg] 08/07/2010 Blood Pressure 128/84 mm[Hg] 07/20/2010 Weight Blood Pressure 61.23 kg 146/96 mm[Hg] 06/29/2010 Weight Blood Pressure 61.23 kg 118/82 mm[Hg] 11/29/2009 Blood Pressure 126/88 mm[Hg] 12/05/2008 Height Weight Blood Pressure 162.56 cm 65.32 kg 154/100 mm[Hg]
== END 2021-10-21 00:58 ==
PROVIDERS: PCP Internal Medicine; Visit Provider Internal Medicine
DX: Z12.31 Encounter for screening mammogram for malignant neoplasm of breast (principal)
CPT/HCPCS: 77063; 77067

== ENCOUNTER 2022-10-26 01:28 | Outpatient (CLI) | payer MEDICARE, SELFPAY ==
--- NOTE | 2022-10-26 | DI.MAMMO_ITS ---
Exam(s) MAMMO SCREENING EXAM: MAMMO SCREENING CLINICAL HISTORY: SCREENING FOR BREAST CANCER Z12.39 TECHNIQUE: Bilateral full field digital CC and MLO mammographic images were obtained with 3D tomosyn thesis and utilizing computer aided detection (CAD). COMPARISON: Available for comparison. FINDINGS: Masses/Architectural Distortion: None seen. Microcalcifications: No suspicious pleomorphic-type are seen. Skin Thickening/Nipple Retraction: None. IMPRESSION: 1. No significant interval change with no specific features of malignancy noted. 2. Unless there is more urgent need, screening mammography is recommended, as per [employer] guidelines. BI-RADS Category 1 - Negative Breast Density - Category B - Scattered areas of fibroglandular density Breast density category C or D implies that the patient has dense breast tissue. Dense breast tissue is very common and is not abnormal but dense breast tissue can make it harder to find cancer on a ma mmogram. Also, dense breast tissue may increase their breast cancer risk. This information about the result of the mammogram report was provided to the patient to raise their awareness. Use this report when you speak with the patient about their risks for breast cancer, which includes their family hist ory. At that time, you may recommend for more screening tests (Ultrasound or MRI) as they might be us eful based on their risk. A negative radiographic report should not delay biopsy if a dominant or clinically suspicious mass is present. Up to ten percent of cancers are not identified on mammography. A negative report may reinforce clinical impression. Adenosis and dense breasts may obscure an underlying neoplasm. False positive reports average 6 to 10%. Patient will receive a letter notifying them of these results.
== END 2022-10-26 01:48 ==
LOC: DI 01:30
PROVIDERS: PCP Internal Medicine; Visit Provider Internal Medicine
DX: Z12.31 Encounter for screening mammogram for malignant neoplasm of breast (principal)
CPT/HCPCS: 77063; 77067

== ENCOUNTER → 2023-10-28 00:32 | Outpatient (CLI) | payer MEDICARE, SELFPAY ==
--- NOTE | 2023-10-28 | DI.MAMMO_ITS ---
Exam(s) MAMMO SCREENING EXAM: MAMMO SCREENING CLINICAL HISTORY: SCREENING, Z12.39 TECHNIQUE: Bilateral full field digital CC and MLO mammographic images were obtained with 3D tomosyn thesis and utilizing computer aided detection (CAD). COMPARISON: Available for comparison. FINDINGS: Masses/Architectural Distortion: None seen. Microcalcifications: No suspicious pleomorphic-type are seen. Skin Thickening/Nipple Retraction: None. IMPRESSION: 1. No significant interval change with no specific features of malignancy noted. 2. Unless there is more urgent need, screening mammography is recommended, as per [place] [employer] [place] [employer] guidelines. BI-RADS Category 1 - Negative Breast Density - Category B - Scattered areas of fibroglandular density Breast density category C or D implies that the patient has dense breast tissue. Dense breast tissue is very common and is not abnormal but dense breast tissue can make it harder to find cancer on a ma mmogram. Also, dense breast tissue may increase their breast cancer risk. This information about the result of the mammogram report was provided to the patient to raise their awareness. Use this report when you speak with the patient about their risks for breast cancer, which includes their family hist ory. At that time, you may recommend for more screening tests (Ultrasound or MRI) as they might be us eful based on their risk. A negative radiographic report should not delay biopsy if a dominant or clinically suspicious mass is present. Up to ten percent of cancers are not identified on mammography. A negative report may reinforce clinical impression. Adenosis and dense breasts may obscure an underlying neoplasm. False positive reports average 6 to 10%. Patient will receive a letter notifying them of these results.
== END ==
PROVIDERS: PCP Internal Medicine; Visit Provider Internal Medicine
DX: Z12.31 Encounter for screening mammogram for malignant neoplasm of breast (principal)
CPT/HCPCS: 77063; 77067

== ENCOUNTER 2024-10-30 01:19 | Outpatient (CLI) | payer MEDICARE, SELFPAY ==
--- NOTE | 2024-10-30 12:42 | DI.MAMMO_ITS ---
Exam(s) MAMMO SCREENING EXAM: MAMMO SCREENING CLINICAL HISTORY: Mammo screening Z12.39 TECHNIQUE: Mammograms were interpreted according to the usual protocol including computer analysis w [employer] CAD system, tomosynthesis and C-view imaging. COMPARISON: [id number] through 2023 FINDINGS: The breasts are composed of scattered fibroglandular densities, Breast Density category B. No suspicious masses or suspicious microcalcifications are seen. No skin thickening or abnormal axillary lymph nodes are seen. There has been no significant change from prior exams. IMPRESSION: BI-RADS Category 1, Negative mammogram Yearly screening mammography is recommended. Breast Density - Category B, scattered fibroglandular densities. Breast density Category C or D implies that the patient has dense breast tissue. Dense breast tissue can make it harder to find cancer on a mammogram. Dense breast tissue is also associated with an incr eased risk of breast cancer. This information about the result of the mammogram report was provided to the patient to raise their awareness. Use this report when you speak with the patient about their risks for breast cancer, which includes their family history. At that time, you may recommend additional screening tests (Ultrasoun d or MRI) as these tests may add significant information. A negative radiographic report should not delay biopsy if a dominant or clinically suspicious mass is present. Up to ten percent of cancers are not identified on mammography. A negative report may reinforce clinical impression. Adenosis and dense breasts may obscure an underlying neoplasm. False positive reports average 6 to 10%. Patient will receive a letter notifying them of these results.
== END 2024-10-30 01:39 ==
LOC: DI 01:19
PROVIDERS: PCP Internal Medicine; Visit Provider Internal Medicine
DX: Z12.31 Encounter for screening mammogram for malignant neoplasm of breast (principal); R92.323 Mammographic fibroglandular density, bilateral breasts
CPT/HCPCS: 77063; 77067